=== PATIENT | male | born 1965 | race Caucasian/White ===

== ENCOUNTER 2021-02-14 07:32 | Emergency (ER) | payer BC, SELFPAY ==
--- NOTE | ~2021-02-14 | XR_ITS ---
EXAMINATION: XR CERVICAL SPINE CLINICAL INFORMATION: Right-sided cervical pain COMPARISON: None TECHNIQUE: 3 views of the cervical spine were obtained. FINDINGS: No fracture or subluxation. Vertebral body height and alignment maintained. Disc spaces are maintained. Endplate osteophytes are seen throughout the cervical spine. The atlantoaxial joint is well aligned. The dens is intact. The prevertebral soft tissues are unremarkable. The visualized lung apices are clear. XR/XR cervical spine 3V IMPRESSION: Mild degenerative changes of the cervical spine.
--- NOTE | ~2021-02-14 | XR_ITS ---
EXAMINATION: XR SHOULDER, RIGHT CLINICAL INFORMATION: Pain. No trauma. COMPARISON: None TECHNIQUE: 3 views of the right shoulder. FINDINGS: No fracture or dislocation. The glenohumeral joint is well aligned. Small osteophyte at the inferior glenoid. The acromioclavicular joint is intact. The visualized lung is clear. The visualized ribs are intact. XR/XR shoulder RT min 2V IMPRESSION: Mild degenerative change of the glenohumeral joint.
[2021-02-14 07:45] VITALS: BP 158/69; PULSE 84; RESP 16; TEMP 36.2; O2SAT 97; BMI 27.5
--- NOTE | 2021-02-14 08:05 | ED.EXTPRO ---
HPI - Extremity Problem General Chief complaint: Extremity Injury, Upper Stated complaint: rt shoulder pain Time Seen by Provider: 02/14/21 08:05 Source: patient Mode of arrival: ambulatory Limitations: no limitations History of Present Illness Complaint: other (R upper shoulder pain) Onset (ago): week(s) (1) Pain Consistency: intermittent Location: right and other (trapezius/scapula pain) Quality: stabbing Relieving factors: nothing Exacerbating factors: other (movement, driving) Associated symptoms: denies other symptoms Context: other (started after lifting something awkwardly) Related Data Previous Rx's Medication Instructions Recorded cyclobenzaprine 10 mg tablet 10 mg PO TID PRN #14 tab 02/14/21 lidocaine 4 % topical patch 1 patch TOPICAL DAILY PRN #10 ea 02/14/21 Allergies Allergy/AdvReac Type Severity Reaction Status Date / Time No Known Allergies Allergy Verified 02/14/21 08:59 Review of Systems Review of Systems: Constitutional : No Fever, No Chills ENT/Mouth : No Ear Pain, No Hoarseness, No sore throat Eyes: No Eye Pain, No Swelling, No Redness, No Foreign Body Cardiovascular : No Chest Pain, No SOB Respiratory : No Cough, No Dyspnea Gastrointestinal : No Nausea, No Vomiting, No Diarrhea, No abdominal Pain Genitourinary : No Dysuria, No Hematuria Musculoskeletal : positive joint pain, No Myalgias, No Joint Swelling Skin : No Skin lacerations, No rash Neuro : No Weakness, No Numbness, No Loss of Consciousness, No Dizziness, No Headache PMFSH Past Medical History Attestation statement: The following information was validated with the patient. Medical History Diabetes Social History Social History (Updated 02/14/21 @ 08:36 by Ana Shine DO) Patient Tobacco Use Status: Never used Tobacco Use of substances other than those prescribed or required for medical reasons: No Advance Directives: No Physical Exam Vital Signs: Vital Signs: Last Vital Signs Temp 97.1 F 02/14/21 07:45 Pulse 84 02/14/21 07:45 Resp 16 02/14/21 07:45 BP 158/69 H 02/14/21 07:45 Pulse Ox 97 02/14/21 07:45 Body Mass Index 27.5 Appearance: Alert. Oriented X3. No acute distress. Eyes: Pupils equal, round and reactive to light. ENT: Pharynx normal. Neck: R lateral cervical ttp + spurling's maneuver CVS: Normal heart rate and rhythm. Pulses normal. Respiratory: No respiratory distress. Breath sounds normal. Abdomen: Soft and non-tender. Skin: Skin warm and dry. Normal skin color. Normal skin turgor. Extremities: No lower extremity edema. RUE 2+ radial pulse, distal NV intact. SILT intact Neuro: Oriented X 3. No motor deficit. No sensory deficit. Course Course Course Narrative: stable for DC MDM - Extremity (Nontraumatic) MDM Narrative Medical decision making narrative: 55 yo male with DM here with R sided upper shoulder pain that I think is cervical radiculopathy - + spurling's at this time will obtain xrays and start on pain patches, muscle relaxers and refer to PCP for PT - dispo per results and findings. Discharge Plan Discharge Clinical Impression: Muscle strain, Cervical radiculopathy Patient Disposition: Home, Self-Care Instructions: Muscle Strain (ED), Cervical Radiculopathy (ED) Additional Instructions: return to ED for any worsening symptoms or concerns call your doctor for physical therapy as soon as possible Mild degenerative changes of the cervical spine. Mild degenerative change of the glenohumeral joint. Prescriptions: New cyclobenzaprine 10 mg tablet 10 mg PO TID PRN (Reason: muscle spasm) Qty: 14 RF: 0 lidocaine 4 % adhesive patch,medicated 1 patch topical DAILY PRN (Reason: pain) Qty: 10 RF: 0 Referrals: Hardik Servin MD [Primary Care Provider] - 2 days Stand Alone Forms: Work/School Release
== END 2021-02-14 09:11 | disposition home or self-care (01) ==
PROVIDERS: Emergency Provider Emergency Medicine; PCP Internal Medicine
DX: S46.911A Strain of unspecified muscle, fascia and tendon at shoulder and upper arm level, right arm, initial encounter (principal); M54.12 Radiculopathy, cervical region; E11.9 Type 2 diabetes mellitus without complications; X50.9XXA Other and unspecified overexertion or strenuous movements or postures, initial encounter; Y93.9 Activity, unspecified; Y92.9 Unspecified place or not applicable; Y99.9 Unspecified external cause status
CPT/HCPCS: 72040; 73030; 99283

== ENCOUNTER 2023-09-19 07:52 | Outpatient (AMB) | payer BC, SELFPAY ==
--- NOTE | 2023-09-19 07:55 | A.OFFVIS_ITS ---
Vital Signs 09/19/23 07:58 Height 6 ft 3 in Weight 278 lb BMI 34.7 BP 124/76 Blood Pressure Location Rt brachial Position Sitting Pulse 90 Pulse Source Pulse Oximeter Pulse Oximetry (%) 95 Oxygen Delivery Method Room Air Intake Visit Reasons: [id number] Intake Note: Patient presents for follow up LASHAWN. patient dianosed 10-12 years ago has a machine that is not connected to any company and uses it here and there pcp suggested he get a new study. Allergies No Known Allergies Allergy (Verified 09/19/23 08:02) Medication List - Last Reconciled 09/19/23 by Rose Wick, SUSAN atorvastatin 40 mg PO DAILY cyclobenzaprine 10 mg PO TID PRN fenofibrate 50 mg PO DAILY lidocaine 4% 1 patch topical DAILY PRN lisinopril 10 mg PO DAILY metformin ER 500 mg PO DAILY semaglutide (Ozempic) 1 mg subcut QWEEK HPI Comments Details: 57-yr-old male presents for new in-person patient visit for sleep consultation. Patient reports he was diagnosed with sleep apnea approx 10-12 yrs ago following an in-lab PSG and PAP titration study. He underwent sleep study d/t snoring, daytime sleepiness. He believes he has lost weight since his original sleep study. He does still use his CPAP machine, but it does not have compliance monitoring capabilities, so he is not sure how effective it is. He has not been using machine nightly, but feels that he could be more compliant with a new machine. When he does not use the machine regularly, he has increased daytime ti red, sleepiness, snoring. He still has his old Resmed CPAP machine, however he does not know his PAP settings. He does use nasal pillows, which he tolerates better than the traditional nasal mask. He is not sure who his previous resp supplier was. He has been buying his PAP supplies from a local medical supply company. Sleep questionnaire: Have you ever been diagnosed with a sleep disorder? yes Have you ever had a sleep study in the past? yes Have you ever been treated for a sleep disorder? yes- cpap Do you take medications for a sleep disorder? no Do you snore? yes Do you wake up gasping at night? denies Do you have episodes of apneas? denies If yes, are they witnessed? n/a Do you have episodes of nocturnal chest pain or dyspnea? no Do you have difficulty initiating sleep? no Do you have difficulty maintaining sleep? no Do you wake up tired? yes Do you have headaches upon awakening? no Do you wake up with dry mouth or throat? no Do you have GERD? Denies, has dx of eosinophilic esophagitis and intermittent dysphagia Do you have bruxism? denies Do you have nocturia? no Do you have nocturnal leg cramps? Rarely Do you have symptoms of restless legs? No Do you act out your dreams? No Do you have sleep paralysis? No Do you have drop attacks? No Do you ever have hypnogenic hallucinations? No Hypersomnolence questionnaire: Do you have daytime tiredness or fatigue? yes Do you easily fall asleep when inactive? can be Have you ever had episodes of sudden weakness? no Have you ever had episodes of sudden weakness associated with strong emotions? no Sleep hygiene questionnaire: What is your usual sleep routine? Usual bedtime is at 8:30-9pm; Usual wake-up time is at 5am. Do you take naps? sometimes, on weekends Is your sleep environment cool, dark, and quiet? yes Do you exercise? some- walking Do you take caffeine or other stimulants? coffee- 3-4 cups per day- usually am and occasionally afternoon coffee, rare evening coffee. Do you use electronics in bed? No What is your work schedule? 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 [employer] Medical History (Updated 09/19/23 @ 09:19 by SUSAN Monte) Diabetes Family History (Updated 09/19/23 @ 08:05 by DELMAR Saunders) Father Diabetes Sleep apnea Mother Diabetes Skin cancer Sister Diabetes Social History (Updated 09/19/23 @ 08:05 by DELMAR Saunders) Alcohol intake: current Patient Tobacco Use Status: Never used Tobacco Physical Exam Vital Signs: Last Vital Signs Pulse 90 09/19/23 07:58 BP 124/76 09/19/23 07:58 Pulse Ox 95 09/19/23 07:58 Oxygen Delivery Method Room Air 09/19/23 07:58 BMI result Body Mass Index 34.7 Const General: no acute distress Orientation/consciousness: patient oriented x3 HEENT Other: Mallampati stage 2 w/ large/widened uvula. Resp Effort & Inspection: normal respiratory effort and able to speak in complete sentences Cardio Rate: regular rate Rhythm: regular rhythm Neuro General: patient oriented x3 Psych Mental Status: mental status grossly normal Speech and movement: Clear speech present Attitude: cooperative Assessment & Plan Assessment & Plan (1) Excessive daytime sleepiness: Code(s): G47.19 - Other hypersomnia Category: Medical (2) Snoring: Code(s): R06.83 - Snoring Category: Medical (3) Class 1 obesity with serious comorbidity and body mass index (BMI) of 34.0 to 34.9 in adult: Code(s): E66.9 - Obesity, unspecified; Z68.34 - Body mass index [BMI] 34.0-34.9, adult Category: Medical (4) Sleep apnea: Code(s): G47.30 - Sleep apnea, unspecified Category: Medical Plan Pt is advised to undergo a f/u sleep study to assess status of sleep apnea in setting of snoring, EDS, obesity, dysphagia, as pt estimates he has had a 50 lb weight loss since last study.. Will f/u with pt after study to discuss results and appropriate treatment options- if sleep apnea is again identified, pt would benefit from receiving a new CPAP machine with remote monitoring capabilities. Pt to call with any worsening concerns or questions. Case discussed w/ Dr Acosta. Orders: Orders RT PSG in-lab sleep study Today E66.9 - Obesity, unspecified, G47.19 - Other hypersomnia, G47.30 - Sleep apnea, unspecified, R06.83 - Snoring, Z68.34 - Body mass index [BMI] 34.0-34.9, adult Coding Level of Care Code New Pt Level 4 (22273) Diagnoses Excessive daytime sleepiness G47.19 Snoring R06.83 Class 1 obesity with serious comorbidity and body mass index (BMI) of 34.0 to 34.9 in adult E66.9; Z68.34 Sleep apnea G47.30 [place] Sleepiness Scale Questions Sitting and reading: moderate chance of dozing Watching TV: moderate chance of dozing Sitting inactive in a theater, movie etc.: would never doze As a passenger in a car for an hour without break: moderate chance of dozing Lying down in the afternoon when circumstances permit: high chance of dozing Sitting and talking to someone: would never doze Sitting quietly after lunch without alcohol: moderate chance of dozing In a car, while stopped for a few minutes in the traffic: would never doze ESS < 10: normal, ESS > 12: pathologic: 11
[2023-09-19 07:58] VITALS: BP 124/76; PULSE 90; O2SAT 95; BMI 34.7
== END 2023-09-19 08:53 | disposition home or self-care (01) ==
PROVIDERS: PCP Internal Medicine; Supervising Provider Internal Medicine; Visit Provider Nurse Practitioner Family
DX: G47.19 Other hypersomnia (principal); R06.83 Snoring; E66.9 Obesity, unspecified; Z68.34 Body mass index [BMI] 34.0-34.9, adult; G47.30 Sleep apnea, unspecified
CPT/HCPCS: 99204

== ENCOUNTER → 2023-09-19 07:52 | Outpatient (BNVA) | payer BC, SELFPAY | PROVIDERS: PCP Internal Medicine; Visit Provider Nurse Practitioner Family ==

== ENCOUNTER → 2023-10-19 20:30 | Outpatient (REF) | payer BC, SELFPAY | LOC: HO.SL 20:30 | PROVIDERS: PCP Family Medicine; Visit Provider Nurse Practitioner Family | DX: G47.33 Obstructive sleep apnea (adult) (pediatric) (principal); G47.19 Other hypersomnia; R06.83 Snoring; E66.9 Obesity, unspecified; Z68.34 Body mass index [BMI] 34.0-34.9, adult | CPT/HCPCS: 95810 ==

== ENCOUNTER → 2023-10-19 21:56 | Outpatient (BNV) | payer BC, SELFPAY | PROVIDERS: PCP Family Medicine; Visit Provider Psychiatry & Neurology Neurology | DX: G47.33 Obstructive sleep apnea (adult) (pediatric) (principal) | CPT/HCPCS: 95810 ==

== ENCOUNTER 2024-04-07 08:55 | Outpatient (AMB) | payer BC, SELFPAY ==
--- OUTSIDE RECORDS SUMMARY | 2024-04-07 08:58 | XMS_ITS | Continuity of Care Document ---
Author Organization [facility] Address [address] [address]- Care Team Providers Care Fluid Dynamicist Name Role Phone Matt Yang DO Primary Care Physician Encounter [facility] Date(s): 03/25/24 - 04/01/24 [facility] [address] [address]- Attending Physician: Tali Chester NP Admitting Physician: Tali Chester NP Referring Physician: Tali Chester NP Encounter Type: One Time OP Allergies, Adverse Reactions, Alerts No Known Allergies Immunizations Given and Recorded Vaccine Date Status Refusal Reason influenza virus vaccine, inactivated 1 04/03/23 Gi tarah influenza virus vaccine, inactivated 2 03/01/22 Gi tarah influenza virus vaccine, inactivated 03/07/21 Give n influenza virus vaccine, inactivated 02/02/20 Give n influenza virus vaccine, inactivated 01/29/19 Give n influenza virus vaccine, inactivated 01/22/18 Give n influenza virus vaccine, inactivated 3 02/27/17 Gi tarah pneumococcal 20-valent conjugate vaccine 4 09/19/22 Given SARS-CoV-2 (COVID-19) mRNA-1273 vaccine 10/11/21 R ecorded SARS-CoV-2 (COVID-19) mRNA-1273 vaccine 04/01/21 R ecorded SARS-CoV-2 (COVID-19) mRNA-1273 vaccine 07/25/20 R ecorded SARS-CoV-2 (COVID-19) mRNA-1273 vaccine 06/27/20 R ecorded pneumococcal 13-valent vaccine 03/07/21 Given zoster vaccine, inactivated 01/27/20 Recorded zoster vaccine, inactivated 09/30/19 Recorded pneumococcal 23-valent vaccine 5/10/17 Given tetanus/diphtheria/pertussis, acel(Tdap) 11/16/15 Given tetanus/diphtheria/pertussis, acel(Tdap) 01/27/09 Given hepatitis B adult vaccine 5 11/16/15 Given hepatitis B adult vaccine 06/16/15 Given hepatitis B adult vaccine 05/14/15 Given Hepatitis A Adult Vaccine 05/14/15 Given FluLaval (oldterm) 01/31/10 Given tetanus-diphtheria toxoids (Td) 6 10/26/98 Given 1Result Comment: [facility]# [id number] Flu Screening questions completed 2Result Comment: [facility]-[id number] 3Result Comment: [02/27/2017] [facility] [id number] 4Result Comment: [id number] 5Result Comment: [11/16/2015] #3 6Admin Note: historical data Medications atorvastatin 40 mg oral tablet 1 tablet, By Mouth, Daily, # 90 tablet, 3 Refills, Maintenance, 01/08/24 9:00:00 AM EDT, [facility]/pharmacy #[id number], 191, cm, 01/08/24 8:29:00 EDT, Height, 122.8, kg, 10/01/23 16:07:00 EDT, Dry Weight Start Date: 01/08/24 Status: Ordered Quantity: 90.0 Unit: tablet Repeat number: 4 CPAP Machine See Instructions, # 1 each, Maintenance, CPAP at a pressure of 14 cm H2O, along with a large sized Quattro FX full face mask. Heated humidification should be included set to patient comfort level., 08/30/10 9:13:56 AM EDT Start Date: 08/30/10 Status: Ordered Quantity: 1.0 Unit: each Repeat number: 1 fenofibrate 48 mg oral tablet 1 tablet, By Mouth, Daily, # 90 tablet, 3 Refills, Maintenance, 01/08/24 9:00:00 AM EDT, [facility]/pharmacy #[id number], 191, cm, 01/08/24 8:29:00 EDT, Height, 122.8, kg, 10/01/23 16:07:00 EDT, Dry Weight Start Date: 01/08/24 Status: Ordered Quantity: 90.0 Unit: tablet Repeat number: 4 lisinopril 10 mg oral tablet 1, tablet, By Mouth, Daily, # 90 tablet, Refills 3, Tot. Refills 3, Maintenance, 01/08/24 8:59:00 AMEDT, Route to Pharmacy Electronically, [facility]/pharmacy #[id number], 191, cm, 01/08/24 8:29:00 EDT, Height, 122.8, kg, 10/01/23 16:07:00 EDT, Dry Weight Start Date: 01/08/24 Status: Ordered Quantity: 90.0 Unit: tablet Repeat number: 4 MetFORMIN (Eqv-Glucophage XR) 500 mg oral tablet, extended release See Instructions, TAKE 1 TABLET BY MOUTH EVERY DAY WITH EVENING MEALS, # 90 tablet, 3 Refills, Maintenance, 01/08/24 8:59:00 AM EDT, [facility]/pharmacy #[id number], 191, cm, 01/08/24 8:29:00 EDT, Height, 122.8, kg, 10/01/23 16:07:00 EDT, Dry Weight Start Date: 01/08/24 Status: Ordered Quantity: 90.0 Unit: tablet Repeat number: 4 Multivitamin 1 tab, By Mouth, Daily, 0 Refills, Maintenance, 10/20/15 1:49:02 PM EDT Start Date: 10/20/15 Status: Ordered Repeat number: 1 omeprazole 20 mg oral delayed release tablet 1 tablet = 20 mg, By Mouth, Daily, # 60 tablet, 5 Refills, Maintenance, 10/01/23 5:40:00 PM EDT, EC Tablet, Partial fill upon patient request if the prescription is for a schedule II opioid drug. Start Date: 10/01/23 Stop Date: 12/30/23 Status: Ordered Quantity: 60.0 Unit: tablet Repeat number: 1 One Touch Delica Lancets See Instructions, # 1 box, Maintenance, 1 box = 100 lancets DX: E11.9 PT TO TEST ONCE DAILY, 05/18/1709:02:40 AM EST, Compound Start Date: 05/18/16 Status: Ordered Quantity: 1.0 Unit: box Repeat number: 1 One Touch Ultra 2 Glucose Meter See Instructions, # 1 each, Maintenance, DX: E11.9 PT TO TEST ONCE DAILY, 05/18/16 10:02:03 AM EST, Compound Start Date: 05/18/16 Status: Ordered Quantity: 1.0 Unit: each Repeat number: 1 One Touch Ultra Test Strips See Instructions, # 30 strip(s), Refills 5, Tot. Refills 5, Maintenance, DX: E11.9 PT TO TEST ONCE DAILY, 05/18/16 10:02:48 AM EST, Compound Start Date: 05/18/16 Status: Ordered Quantity: 30.0 Unit: strip(s) Repeat number: 6 Ozempic (1 mg dose) 4 mg/3 mL subcutaneous solution See Instructions, INJECT 1 MG UNDER THE SKIN EVERY 7 DAYS *ROTATE INJECTION SITES*, # 3 Unknown, 3 Refills, Maintenance, 01/08/24 9:00:00 AM EDT, [facility] #[id number], 191, cm, 01/08/24 8:29:00 EDT, Height, 122.8, kg, 10/01/23 16:07:00 EDT, Dry Weight Start Date: 01/08/24 Status: Ordered Quantity: 3.0 Unit: Unknown Repeat number: 4 Problem List Condition Confirmation Course Effective Dates Status Health Status Informant Dilated aortic root Confirmed Active Aortic regurgitation/aortic stenosis mild 2021 1 Confirmed 03/14/19 Active Bakers cyst Confirmed Active Eosinophilic esophagitis EGD 2019 Confirmed Active Hammer toes of both feet Confirmed Active Type 2 diabetes mellitus with hyperglycemia Confirmed Active Hypertriglyceridemia Confirmed Active Microalbuminuria due to type 2 diabetes mellitus Confirmed Active Migraine Confirmed Active Mixed hyperlipidemia Confirmed Active Obstructive sleep apnea syndrome in adult 2, 3, 4, 5 Confirmed Active Physical exam Confirmed Active Severe obesity (BMI 35.0-39.9) with comorbidity Confirmed Active Fatty liver FIB 4; 1.14 6, 7, 8 Confirmed Active Tubular adenoma of colon colonoscopy 2018/due 2023 Confirmed 05/13/18 Active Controlled type 2 diabetes mellitus with diabetic nephropathy 9 Confirmed Active Varicose vein of leg Confirmed Active 1Summary The left ventricular size is normal. The left ventricular wall thickness is severely increased. The LV systolic function is normal . The left ventricular ejection fraction is 60-65 %. There are no definite regional wall motion abnormalities. Unable to determine the number of cusps of the aortic valve on the short axis views of the valve. The aortic valve appears moderately calcified. The aortic valve leaflet opening is mildly decreased . There is mild aortic stenosis. There is at least mild aortic regurgitation. There is mild dilation of the aortic root (4.4 cm). The right ventricular size and function appears grossly normal. Comparison Comparison is made to the study of March 10, 2019. The prior study's images were not available for direct comparison. 2epworth 1 3off again 4cpap compliant per study 5on CPAP 6ANA positive low titer, negative hepatitis A, B, and C, normal iron 7Referral ultrasound 8workup 910 year cvd risk 7.6% Social History Social History Type Response Smoking Status Former smoker, quit more than 30 days ago; Other: quit in 1993; entered on: 11/27/18 Sex Sex Representation Male (finding) Cardiology * Event Display: VL Venous Dup Scan Venous Insuf LE Right Authored Date: [id number] Demographics Procedure Information Patient name: JOHNSON RUSSELL Procedure date: 03/25/2024 10:07 AM Corporate Proc. sub type: Veins: Lower Extremities Venous Insufficiency, Venous Duplex Scan Gender: Male Venous Insuf LE Right. Date of : 1965 Accession No: [id number] Age: 58 year(s) Account No: [id number] Patient status: Routine Procedure Staff Admit Status: Outpatient Attending Physician: Tali Chester NP Probe: L9-3 Ordering physician: Tali Chester NP Technical quality: Adequate visualization Referring Physician: Tali Chester NP Facility: [facility] Radiology Special Procedure Tech: Vadim Bailey Interpreting physician: Gilberto Ugarte Study location: [facility] Procedure consent obtained: Indications No Swelling of limb. LE Veins Diagram Right Left The diagram is not intended for diagnosis. It is provided for reference only. LE Venous Insufficiency Findings Right Left AP Reflux AP Reflux DIAM Time DIAM Time Location (mm) (sec) Thrombosis (mm) (sec) Thrombosis Common Femoral 1.3 Prox Femoral 0.8 Mid Femoral 1.2 Dist Femoral 2.2 Popliteal 1.5 Right Left AP Reflux AP Reflux DIAM Time DIAM Time Location (mm) (sec) Thrombosis (mm) (sec) Thrombosis Sapheno Femoral Junction 9.4 6.1 GSV High Thigh 7.5 6.7 GSV Mid Thigh 8.6 7.8 GSV Low Thigh 7 5 GSV Knee 7.1 5.5 GSV High Calf 7.8 5.5 SSV High Calf 4.6 0 SSV Low Calf 5.4 2.9 Physician Conclusions Summary: Right side: There is reflux lasting 7.8 seconds at the mid thigh in the Great Saphenous vein. Great saphenous vein has multiple large tortuous branches upper calf and extending anteriorly to distal posterior calf. The Great Saphenous Vein does not appear aneurysmal. There is no evidence of deep vein thrombosis in the segments insonated. There is deep vein reflux. There is reflux lasting 2.9 seconds in the Small Saphenous vein. Deep vein air traffic coordinator right ankle measures 6.8mm and connects to superficial tortuous branches at mid calf. Exam was performed with patient in Reverse Trendelenburg position. * Event Display: VL Venous Dup Scan Venous Insuf LE Right Authored Date: Patient Care team information Care Team Personnel Name: Matt Yang DO Position: S Physician - Primary Care Member Role: PCP [address]: [address] [place] [address] Telecom: Care Team Related Persons Name: SUSIE ORNELAS Insurance Providers Guarantor name: DREW ORNELAS Health Plan Information #: 1 Payer: HMO [employer] Member Number: [id number] Policy Number: NA Group Number: [id number] Health Plan Information #: 2 Payer: HMO [employer] NETWORK Member Number: [id number] Policy Number: NA Group Number: NA
[2024-04-07 09:00] VITALS: BMI 37.4
--- NOTE | 2024-04-07 09:00 | MHC.OFFVIS ---
Vital Signs 04/07/24 09:00 Height 6 ft 3 in Weight 299 lb BMI 37.4 Intake Visit Reasons: 6 Month F/U Intake Note: Patient presents for 6 month follow up Allergies No Known Allergies Allergy (Verified 04/07/24 09:02) HPI Comments Details: 58 year old male f/u for sleep apnea. CPAP Use 01/2024- 03/2024 Uses the Myairapp. Total usage 7hours and 10min, AHI 1.5/hr, press [id number] Good seal on mask He goes to bed a 10PM, wakes up at 6;30AM, gets up once for the bathroom. He sleeps well with CPAP and feels refreshed in the AM. He denies morning headaches, vision changes, nocturia, balance or gait issues. His mood, diet and memory is good. His mom 89, she is on dialysis so that tends to bother him, he inquires about genetic disposition to diabetes and HTN. 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 BMI is 37, on Ozempic 1mg subcutaneously Q/ week. Diabetes and HTN well controlled, on Metformin, Lisinopril. Cleans mask, tubing, and changes filters, water as required. [facility] Medical History Diabetes Family History Father Diabetes Sleep apnea Mother Diabetes Skin cancer Sister Diabetes Social History Alcohol intake: current Patient Tobacco Use Status: Never used Tobacco Review of Systems Const All systems reviewed & are unremarkable except as noted in HPI and below Physical Exam Vital Signs: BMI result Body Mass Index 37.4 Const General: cooperative, comfortable and no acute distress Nutritional Appearance: average body habitus and obese (BMI 37) Orientation/consciousness: patient oriented x3 Eyes Pupils: Equal, round and reactive pupils present Neck Neck: Yes full ROM and Yes supple Resp Effort & Inspection: normal respiratory effort and able to speak in complete sentences Neuro General: patient oriented x3 and moves all extremities Cranial nerves: Yes CN's II-XII intact bilaterally, Yes Equal, round and reactive pupils present, Yes Normal accommodation reflex present, Yes Bilaterally intact EOM present, Yes Nystagmus not present, Yes Normal facial strength present, Yes Midline tongue present, Yes Symmetric palate elevation present, Yes Ability to bilaterally rotate head present and Yes Ability to bilaterally elevate shoulders present Cognition (Neuro): normal cognition Gait exam (Neuro): Normal gait present Motor exam (neuro): 5/5 motor strength present throughout and Normal motor muscle tone present throughout Deep tendon reflexes (DTR's): Right triceps reflex intensity grade: 2+, Left triceps reflex intensity grade: 2+, Rt Biceps (C5, C6): 2+, Left biceps reflex intensity grade: 2+, Right brachioradialis reflex intensity grade: 2+, Left brachioradialis reflex intensity grade: 2+, Right patellar reflex intensity grade: 2+ and Left patellar reflex intensity grade: 2+ Results Reviewed Results Reviewed: Reviewed Sleep Study 10/2024 -Moderate Sleep Apnea AHI 19/Hr. O2 Cecilio 81% PLMS >59 Reviewed Compliance My Air Janel on phone Jan 2024 - 2023 Total usage 7hours and AHI 1.5 Pressures are comfortable with Minimal leaks. Assessment & Plan Assessment & Plan (1) Class 1 obesity with serious comorbidity and body mass index (BMI) of 34.0 to 34.9 in adult: Code(s): E66.9 - Obesity, unspecified; Z68.34 - Body mass index [BMI] 34.0-34.9, adult Category: Medical (2) Sleep apnea: Code(s): G47.30 - Sleep apnea, unspecified Category: Medical Qualifiers: Sleep apnea type: unspecified type Qualified Code(s): G47.30 - Sleep apnea, unspecified (3) Diabetes: Code(s): E11.9 - Type 2 diabetes mellitus without complications Category: Medical Qualifiers: Diabetes mellitus type: type 2 Diabetes mellitus complication status: with other specified complication Diabetes mellitus senior care insulin use: without senior care use Qualified Code(s): E11.69 - Type 2 diabetes mellitus with other specified complication Plan Obstructive Sleep Apnea Improving Discussed Compliance as patient has diabetes, and hypertension. A1c is well managed. HTN, managed with Lisinopril. BMI is elevated, on Ozempic subcut. 1x week. Patient education provided #1 Modifiable risk for Cardiovascular events is good blood pressure control, as patient has multiple risk factors, discussed daily exercise and Dash diet or the Mediterranean diet to optimize caloric intake vs. expenditure. F/u with Neuro and Sleep in 6 months. Coding Level of Care Code Est Pt Level 3 (35651) Diagnoses Class 1 obesity with serious comorbidity and body mass index (BMI) of 34.0 to 34.9 in adult E66.9; Z68.34 Sleep apnea, unspecified type G47.30 Sleep apnea type: unspecified type Type 2 diabetes mellitus with other specified complication, without long-term current use of insulin E11.69 Diabetes mellitus type: type 2 Diabetes mellitus complication status: with other specified complication Diabetes mellitus remote computer terminal operator insulin use: without senior care use Time Spent (min) 30 Comment Improving
== END 2024-04-07 09:43 | disposition home or self-care (01) ==
PROVIDERS: PCP Internal Medicine; Visit Provider Physician Assistant Medical
DX: E66.9 Obesity, unspecified (principal); Z68.34 Body mass index [BMI] 34.0-34.9, adult; G47.30 Sleep apnea, unspecified; E11.69 Type 2 diabetes mellitus with other specified complication
CPT/HCPCS: 99213

== ENCOUNTER 2024-10-06 08:00 | Outpatient (AMB) | payer BC, SELFPAY ==
--- NOTE | 2024-10-06 08:05 | A.OFFVIS_ITS ---
Vital Signs 10/06/24 08:06 Height 6 ft 3 in Weight 300 lb BMI 37.5 BP 116/58 L Blood Pressure Location Rt brachial Position Sitting Pulse 74 Pulse Source Pulse Oximeter Pulse Oximetry (%) 96 Oxygen Delivery Method Room Air Intake Visit Reasons: 6 Month F/U Intake Note: Miranda here for a follow-up, had a colonoscopy on 09/11/24. Final Armature Tester Required: No Accompanied by: Self / Same As Patient Allergies No Known Allergies Allergy (Verified 10/06/24 08:12) Do you need a note to return to daycare/school/sports/work: No HPI Comments Details: 58 year old male f/u for sleep apnea. LASHAWN compliance Report 06/2024- 09/2024 total use 86/90 days 97% and >4h ours 86 days avg 7hours 9min Press 6.4 and leaks 1.4 AHI is 0.7/hr Uses his [employer] cherelle to monitor sleep. He goes to bed a 10pm, wakes up at 6;30AM, gets up once for the bathroom. He sleeps well with CPAP and feels refreshed in the AM. He denies morning headaches, vision changes, nocturia, balance or gait issues. His mood, and memory is stable. Diet needs more attengion. His mom, 89 has diabetes and so he is more concerned about genetic disposition to diabetes. 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 BMI is 37.5, he is on Ozempic 2mg subcutaneously Q/ week, due to A1c being 12 and metformin 1000mg BID [facility] in [facility]. Diabetes and HTN is being managed by pcp, he has lost 15 lbs. now 300lbs. Cleans mask, tubing, and changes filters, water as required. [facility] Medical History Diabetes Family History Father Diabetes Sleep apnea Mother Diabetes Skin cancer Sister Diabetes Social History Alcohol intake: current Patient Tobacco Use Status: Never used Tobacco Physical Exam Vital Signs: Last Vital Signs Pulse 74 10/06/24 08:06 BP 116/58 L 10/06/24 08:06 Pulse Ox 96 10/06/24 08:06 Oxygen Delivery Method Room Air 10/06/24 08:06 BMI result Body Mass Index 37.5 Const General: cooperative, comfortable and no acute distress Nutritional Appearance: obese (BMI 37) Orientation/consciousness: patient oriented x3 Eyes Pupils: Equal, round and reactive pupils present Neck Neck: Yes full ROM and Yes supple Resp Effort & Inspection: normal respiratory effort and able to speak in complete sentences Neuro Other: Denies headache and RLS symptoms. FH + alzheimers dementia paternal grandma late onset 80s. General: patient oriented x3 and moves all extremities Cranial nerves: Yes CN's II-XII intact bilaterally, Yes Equal, round and reactive pupils present, Yes Normal accommodation reflex present, Yes Bilaterally intact EOM present, Yes Nystagmus not present, Yes Normal facial strength present, Yes Midline tongue present, Yes Symmetric palate elevation present, Yes Ability to bilaterally rotate head present and Yes Ability to bilaterally elevate shoulders present Cognition (Neuro): normal cognition Gait exam (Neuro): Normal gait present Motor exam (neuro): 5/5 motor strength present throughout and Normal motor muscle tone present throughout Psych Appearance: grossly normal Thought process: Normal thought process present Thought content: Normal thought content present Results Reviewed Results Reviewed: LASHAWN compliance Report 06/2024- 09/2024 total use 86/90 days 97% and >4h ours 86 days avg 7hours 9min Press 6.4 and leaks 1.4 AHI is 0.7/hr [facility] Assessment & Plan Assessment & Plan (1) Sleep apnea: Code(s): G47.30 - Sleep apnea, unspecified Category: Medical Qualifiers: Sleep apnea type: unspecified type Qualified Code(s): G47.30 - Sleep apnea, unspecified (2) Class 1 obesity with serious comorbidity and body mass index (BMI) of 34.0 to 34.9 in adult: Comment: pcp increased ozempic to 2mg Qweek due to A1c being 12. Code(s): E66.9 - Obesity, unspecified; Z68.34 - Body mass index [BMI] 34.0-34.9, adult Category: Medical Qualifiers: Obesity type: due to excess calories Qualified Code(s): E66.811 - Obesity, class 1; E66.09 - Other obesity due to excess calories; Z68.34 - Body mass index [BMI] 34.0-34.9, adult (3) Diabetes: Comment: metformin increased to 1000mg PO BID, per pcp Code(s): E11.9 - Type 2 diabetes mellitus without complications Category: Medical Qualifiers: Diabetes mellitus type: type 2 Diabetes mellitus bed bug exterminator insulin use: without bed bug exterminator use Diabetes mellitus complication status: with other specified complication Qualified Code(s): E11.69 - Type 2 diabetes mellitus with other specified complication Plan Obstructive Sleep Apnea on cpap therapy. Discussed Compliance as patient has diabetes, A1c managed by pcp. BMI is elevated, on Ozempic subcut. 2mg po 1x week. Patient education provided #1 Modifiable risk for Cardiovascular events is good blood pressure control, as patient has multiple risk factors, discussed daily exercise and Dash diet or the Mediterranean diet to optimize caloric intake vs. expenditure. F/u with Neuro and Sleep in 6 months. Patient Instructions: Sleep Hygiene provided: set a scheduled bedtime and wake time to help regulate the circadian rhythm and balance the release of pituitary hormones. Sleep in a dark room, temperatures below 68 degrees, and no devices n bed. Limit caffeinated products 6 hours prior to bed, and limit fluids 2-4 hours prior to bed. Gentle night yoga, diffusing essential oils, and playing soft music can be relaxing. Continue to wash mask, tubing, change filters and water in reservoir as needed. Request supplies from [facility] as needed. Coding Level of Care Code Est Pt Level 4 (45040) Diagnoses Sleep apnea, unspecified type G47.30 Sleep apnea type: unspecified type Class 1 obesity due to excess calories with serious comorbidity and body mass index (BMI) of 34.0 to 34.9 in adult E66.811; E66.09; Z68.34 Obesity type: due to excess calories Type 2 diabetes mellitus with other specified complication, without long-term current use of insulin E11.69 Diabetes mellitus type: type 2 Diabetes mellitus care home insulin use: without bed bug exterminator use Diabetes mellitus complication status: with other specified complication Time Spent (min) 15 Comment Improving
[2024-10-06 08:06] VITALS: BP 116/58; PULSE 74; O2SAT 96; BMI 37.5
--- OUTSIDE RECORDS SUMMARY | 2024-10-06 08:07 | XMS_ITS | Patient Health Record ---
Author Organization [facility] [place] Address [address] [place] [address] Care Team Providers Care Security Flex Utility Officer Name Role Phone Malathi BROCK, Hardik Primary Care Provider Unava ilable Black, [place] Unavailable [phone] Reason For Referral No Information Medications Medication SIG (Take, Route, Frequency, Duration) Notes Start Date End Date Status Low-Dose Aspirin Act mitzi Atorvastatin Calcium 40 MG 1 tablet Oral ly Once a day for 30 day(s) Active Lisinopril 10 MG 1 tablet Orally Once a day for 30 day(s) Active metFORMIN HCl 500 MG 1 tablet with a maverick l Orally Once a day for 30 day(s) Active Social History Tobacco Use: Social History Observation Description Date Details (start date - stop date) Former Smoker NA - NA Tobacco Use/Smoking Question Answer Notes Are you a: former smoker Additional Findings: Tobacco User Light cigarett e smoker ((1-9 cigs/day) Alcohol Screen Question Answer Notes Did you have a drink containing alcohol in the p ast year? Yes Points 0 Interpretation Negative Tobacco use other than smoking: Question Answer Notes Are you an other tobacco user? No Problems Problem Type SNOMED Code ICD Code Onset Dates Problem Status W/U Status Risk Notes Problem Type II diabetes mellitus without complication (928504377) Type 2 diabetes mellitus without complications (E11.9) Active confirmed Plan Of Treatment Pending Test Test Name Order Date [id number] Plate 12/23/2018 45319- Debride <25 sq cm 01/06/2019 Insurance Providers Payer Name Payer Address Payer Phone Subscriber Number Group Number Insured Name Patient Relationship to Insured Coverage Start Date Coverage End Date [facility] [address] [place] [address] [id number] Parth Mayes Self - patient is the insured Medical (General) History Medical History History ICD Code type II diabetes chicken pox Surgical History Surgery Date(Month/Year)
== END 2024-10-06 08:35 | disposition home or self-care (01) ==
LOC: HO.HSMS 08:01
PROVIDERS: PCP Family Medicine; Visit Provider Physician Assistant Medical
DX: G47.30 Sleep apnea, unspecified (principal); E66.811 Obesity, class 1; E66.09 Other obesity due to excess calories; Z68.34 Body mass index [BMI] 34.0-34.9, adult; E11.69 Type 2 diabetes mellitus with other specified complication
CPT/HCPCS: 99214

== ENCOUNTER 2025-03-31 08:01 | Outpatient (AMB) | payer BC, SELFPAY ==
[2025-03-31 08:07] VITALS: BP 134/66; BMI 38.3
--- NOTE | 2025-03-31 08:07 | MHC.OFFVIS ---
Vital Signs 03/31/25 08:07 Height 6 ft 3 in Weight 306 lb 8 oz BMI 38.3 BP 134/66 Blood Pressure Location Lt brachial Position Sitting Intake Visit Reasons: 6m follow up Intake Note: Patient presents follow up LASHAWN. Compliance report in chart(79/90days, >=4hrs-86%, Average Usage-6hr 11min, Med Pressure-6.2, Med Leaks-1.0, AHI-0.3) Accompanied by: Self / Same As Patient Allergies No Known Allergies Allergy (Verified 03/31/25 08:10) HPI Comments Details: 59 year old male with dyslipidemia presents for a f/u of LASHAWN. LASHAWN compliance Report 12/2024- 03/2025 total use 79/90 days >4 hours is 86%, avg use is 6hrs 11min Med Press 6.2 and leaks max 22.9/min AHI is 0.3/hr Uses his [employer] cherelle to monitor sleep.Cleans mask, tubing, and changes filters, water as required. 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 He sleeps better with use of CPAP and feels refreshed in the AM. He likes his [employer] nasal pillows. He denies morning headaches, vision changes, nocturia, balance or gait issues. His mood, and memory is stable. Diet needs more attention he is trying to implement an exercise plan into his sedentary lifestyle at work. Just got a puppy so plans on walking daily. He has lowered his A1c to 6.1 now, with metformin and ozempic, notices weight is 306lbs and this is a challenge for him. His mom, 89 passed after retinal artery occlusion 11/2024, she had a fall leading to hip fracture and hospitalization post surgical procedure in Jan 2025. He is concerned about his dyslipidemia and fenofibrate was increased to 50mg by PCP, continues on statin therapy, managed by PCP, Lisa Au, [facility] Serena Torres. [facility] Medical History Diabetes Family History Father Diabetes Sleep apnea Mother Diabetes Skin cancer Sister Diabetes Social History Alcohol intake: current Patient Tobacco Use Status: Never used Tobacco Physical Exam Vital Signs: Last Vital Signs BP 134/66 03/31/25 08:07 BMI result Body Mass Index 38.3 Const General: cooperative, comfortable and no acute distress Nutritional Appearance: obese (BMI 37) Orientation/consciousness: patient oriented x3 Eyes Pupils: Equal, round and reactive pupils present Neck Neck: Yes full ROM and Yes supple Resp Effort & Inspection: normal respiratory effort and able to speak in complete sentences Neuro General: patient oriented x3 and moves all extremities Cranial nerves: Yes Equal, round and reactive pupils present, Yes Normal accommodation reflex present, Yes Normal facial strength present, Yes Midline tongue present, Yes Ability to bilaterally rotate head present and Yes Ability to bilaterally elevate shoulders present Cognition (Neuro): normal cognition Gait exam (Neuro): Normal gait present Motor exam (neuro): 5/5 motor strength present throughout and Normal motor muscle tone present throughout Coordination: [id number] test normal Psych Appearance: grossly normal Mental Status: mental status grossly normal Thought process: Normal thought process present Thought content: Normal thought content present Results Reviewed Results Reviewed: LASHAWN compliance Report 12/2024- 03/2025 total use 79/90 days >4 hours is 86%, avg use is 6hrs 11min Med Press 6.2 and leaks max 22.9/min AHI is 0.3/hr Uses his [employer] cherelle to monitor sleep.Cleans mask, tubing, and changes filters, water as required. Assessment & Plan Assessment & Plan (1) Sleep apnea: Comment: on cpap therapy Code(s): G47.30 - Sleep apnea, unspecified Category: Medical Qualifiers: Sleep apnea type: obstructive Qualified Code(s): G47.33 - Obstructive sleep apnea (adult) (pediatric) (2) Class 1 obesity with serious comorbidity and body mass index (BMI) of 34.0 to 34.9 in adult: Comment: pcp increased ozempic to 2mg Qweek due to A1c being 12. Code(s): E66.9 - Obesity, unspecified; Z68.34 - Body mass index [BMI] 34.0-34.9, adult Category: Medical Qualifiers: Obesity type: due to excess calories Qualified Code(s): E66.811 - Obesity, class 1; E66.09 - Other obesity due to excess calories; Z68.34 - Body mass index [BMI] 34.0-34.9, adult (3) Diabetes: Comment: metformin increased to 1000mg PO BID, per pcp Code(s): E11.9 - Type 2 diabetes mellitus without complications Category: Medical Qualifiers: Diabetes mellitus complication status: with other specified complication Diabetes mellitus usp insulin use: without usp use Diabetes mellitus type: type 2 Qualified Code(s): E11.69 - Type 2 diabetes mellitus with other specified complication Plan Moderate lashawn AHI was 18 and o2 desat to 81%. Compliant on cpap therapy. Discussed compliance as patient has dyslipidemia and diabetes, A1c managed by pcp and pt states is now improved. BMI is elevated 38.3 on Ozempic subcut. 2mg subq 1x week. Plans to start 15min of walking into his lifestyle 2-3 x a week. Patient education provided #1 Modifiable risk for Cardiovascular events is good blood pressure control, as patient has multiple risk factors, discussed daily exercise and Dash diet or the Mediterranean diet to optimize caloric intake vs. expenditure. F/u with Neuro and Sleep in 6 months. Patient Instructions: Sleep hygiene reviewed, pt is compliant and sleep has improved. Monitor a1c, and cholesterol, triglycerides, recent h/o mom passed due to stroke. Optimizing health outcomes, walking daily for 15min or longer if possible and reducing the triglycerides by choosing a heart healthy diet. Fenofibrate is increased to 50mg po daily. Coding Level of Care Code Est Pt Level 4 (38036) Diagnoses Obstructive sleep apnea syndrome G47.33 Sleep apnea type: obstructive Class 1 obesity due to excess calories with serious comorbidity and body mass index (BMI) of 34.0 to 34.9 in adult E66.811; E66.09; Z68.34 Obesity type: due to excess calories Type 2 diabetes mellitus with other specified complication, without long-term current use of insulin E11.69 Diabetes mellitus complication status: with other specified complication Diabetes mellitus usp insulin use: without usp use Diabetes mellitus type: type 2
--- OUTSIDE RECORDS SUMMARY | 2025-03-31 08:08 | XMS_ITS | Patient Health Record ---
Author Organization [facility] Address [address] [place] [address] Care Team Providers Care Vat House Supervisor Name Role Phone Malathi BROCK, Hardik Primary Care Provider Unava ilable Black, [place] Unavailable [phone] Reason For Referral No Information Medications Medication SIG (Take, Route, Frequency, Duration) Notes Start Date End Date Status Low-Dose Aspirin Act mitzi Atorvastatin Calcium 40 MG 1 tablet Oral ly Once a day; Duration: 30 day(s) Active Lisinopril 10 MG 1 tablet Orally Once a day; Duration: 30 day(s) Active metFORMIN HCl 500 MG 1 tablet with a maverick l Orally Once a day; Duration: 30 day(s) Active Social History Tobacco Use: [...] Problem Type II diabetes mellitus without complication (982509447) Type 2 diabetes mellitus without complications (E11.9) Active confirmed Plan Of Treatment Pending Test Test Name Order Date [id number] Plate 12/23/2018 33762- Debride <25 sq cm 01/06/2019 Insurance Providers Payer Name Payer Address Payer Phone Subscriber Number Group Number Insured Name Patient Relationship to Insured Coverage Start Date Coverage End Date [facility] [address] [place] [address] [phone] [id number] Parth Mayes Self - patient is the insured Medical (General) History Medical History History ICD Code type II diabetes chicken pox Surgical History Surgery Date(Month/Year)
== END 2025-03-31 08:46 | disposition home or self-care (01) ==
LOC: HO.HSMS 08:02
PROVIDERS: PCP Family Medicine; Visit Provider Physician Assistant Medical
DX: G47.30 Sleep apnea, unspecified (principal); E66.811 Obesity, class 1; E66.09 Other obesity due to excess calories; Z68.34 Body mass index [BMI] 34.0-34.9, adult; E11.69 Type 2 diabetes mellitus with other specified complication
CPT/HCPCS: 99214